=== PATIENT | male | born 1940 | race American Indian/Alaskan Native ===

== ENCOUNTER 2017-03-23 07:12 | Day surgery (SDC) | payer MEDICARE, MEDICAID ==
[2017-03-15 09:02] VITALS: BMI 28.2
[2017-03-23] MEDS ORDERED: Simethicone 40 mg/0.6 ml Liquid (30 ml) ONE (07:58)
[2017-03-23] MEDS ORDERED: Propofol 10 mg/ml Inj (20 ML) ONE (08:08)
[2017-03-23 08:09] LABS: BASO # 0.01 K/mm3 (0.0-2.0); BASO % 0.2 % (0.0-3.0); EOS # 0.2 (0.0-0.7); EOS % 2.9 % (1.5-5.0); GRAN # 3.28 (1.4-6.5); GRAN % 62.9 % (50.0-68.0); HEMOGLOBIN 10.8 g/dL (14.0-18.0); LYMPH # 1.2 (1.2-3.4); LYMPH % 23.6 % (22.0-35.0); MEAN CELL VOLUME 85.3 fl (80.0-105.0); MEAN CORPUSCULAR HEMOGLOBIN 27.9 pg (25.0-35.0); MEAN CORPUSCULAR HGB CONC 32.7 g/dl (31.0-37.0); MONO # 0.5 (0.1-0.6); MONO % 10.4 % (1.0-6.0); PLATELET COUNT 134 10^3/uL (120.0-450.0); RBC 3.87 10^6/uL (3.5-6.1); RED CELL DISTRIBUTION WIDTH 14.1 % (11.5-14.5); WHITE BLOOD COUNT 5.2 10^3/ul (4.5-11.0)
[2017-03-23] MEDS ORDERED: Lidocaine 1% Inj (20ml) ONE (08:09)
[2017-03-23] MEDS ORDERED: Succinylcholine 200 mg/10 ml Inj IV ONE (08:09)
[2017-03-23 08:22] LABS: ALB/GLOB RATIO 1.2 (1.1-1.8); ALBUMIN 3.4 g/dL (3.0-4.8); ALT/SGPT 22 U/L (7-56); AMYLASE 79 U/L (35-125); AST/SGOT 18 U/L (15-59); BLOOD UREA NITROGEN 17 mg/dL (7-21); CALCIUM 8.5 mg/dL (8.4-10.5); GAMMA GLUTAMYL TRANSPEPTIDASE 30 U/L (8-78); GFR AFRICAN-AMERICAN 60; GFR NON-AFRICAN AMERICAN 50; INR 1.01 (0.93-1.08); PARTIAL THROMBOPLASTIN TIME 27.8 Seconds (23.7-30.8); PROTHROMBIN TIME 10.9 Seconds (9.9-11.8)
[2017-03-23 08:23] LABS: LIPASE < 10 U/L (23-300)
[2017-03-23] MEDS ORDERED: Sodium Chloride 0.9% 1,000 ML IV SCH (11:15)
[2017-03-23 12:31] VITALS: BP 154/78; PULSE 79; RESP 18; TEMP 98; O2SAT 99
== END 2017-03-23 13:40 | disposition home or self-care (01) ==
LOC: ENDO 07:12
PROVIDERS: ATTEND Internal Medicine Gastroenterology
DX: K86.1 Other chronic pancreatitis (principal); K25.4 Chronic or unspecified gastric ulcer with hemorrhage; K86.89 Other specified diseases of pancreas; K83.8 Other specified diseases of biliary tract; K31.89 Other diseases of stomach and duodenum; I10 Essential (primary) hypertension; E11.9 Type 2 diabetes mellitus without complications; Z79.4 Long term (current) use of insulin
CPT/HCPCS: 36415; 43237; 80053; 82150; 82977; 83690; 85025; 85610; 85730; J0330; J2704; J3010; J7040 ×2